=== PATIENT | female | born 1945 | race Caucasian/White ===

== ENCOUNTER 2025-09-09 12:55 | Emergency (ER) | payer BC, MEDICARE | END 2025-09-09 14:17 | disposition home or self-care (01) | LOC: ERS 12:55 | DX: L03.115 Cellulitis of right lower limb (principal); E11.9 Type 2 diabetes mellitus without complications; I10 Essential (primary) hypertension; F17.210 Nicotine dependence, cigarettes, uncomplicated | CPT/HCPCS: 99283 ==